=== PATIENT | male | born 1995 | race Caucasian/White ===

== ENCOUNTER 2017-06-18 12:34 | Emergency (ER) | payer BC, OTHER ==
[2017-06-18 12:40] VITALS: RESP 16
--- NOTE | 2017-06-18 13:09 | EDPHY ---
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 He was snowboarding with friends and doing tricks and stuck his head several times during falls. He remembers one particularly hard fall after which he felt dazed, but he did feel well enough to continue snowboarding. No LOC. He was helmeted. Since that time, he has had difficulty concentrating, headaches while reading, and intermittent nausea. He feels he has been speaking and processing things more slowly since the incident. Currently, he has a mild headache. He was evaluated earlier today at [facility] clinic, and presents now for further evaluation including CT head. He has had a concussion in the past. He denies neck pain, chest pain, abdominal pain, or other associated symptoms. REVIEW OF SYSTEMS: A 10 point review of systems was performed and is negative with the exception of the elements mentioned in the history of present illness. Past Medical/Surgical History: ADHD Social History: Occasional tobacco and alcohol use. Student at [employer]. Smoking Status: Never smoked Physical Exam: General Appearance: Alert, no distress Head: Atraumatic Eyes: No conjunctival erythema, PERRLA, EOMI ENT, Mouth: no oral trauma, no bony tenderness Neck: Non-tender, full range of motion without pain Respiratory: No chest wall tenderness, lungs clear bilaterally Cardiovascular: Regular rate and rhythm Abdomen: Abdomen is soft and non tender Skin: No lacerations, no abrasions Back: No midline T/L/S tenderness Extremities: Pelvis is stable and nontender; no extremity tenderness or deformity Neurological: Alert, oriented x3, cranial nerves II through XII intact, motor 5/ 5, sensory intact to light touch, normal gait Psychiatric: Mood and affect normal Constitutional: Initial Vital Signs Temperature (C) 36.4 C 06/18/17 12:35 Heart Rate 65 06/18/17 12:35 Respiratory Rate 16 06/18/17 12:35 Blood Pressure 114/66 06/18/17 12:35 O2 Sat (%) 96 06/18/17 12:35 O2 Delivery Mode Room Air Allergies/Adverse Reactions: No Known Allergies Allergy (Unverified 06/18/17 12:39) Home Medications: Medication Instructions Recorded [place]van[place] 06/18/17 Medical Decision Making - Diagnostics Imaging Results: Imaging Impressions Head CT 06/18/17 13:09 Impression: 1. Normal CT brain without contrast. 2. No skull fracture. 3. No epidural or subdural hematoma. Findings and recommendations discussed with Emergency Department physician, CLARA VARGAS at 13:49 hour, 06/18/2017. Final report concurs with initial preliminary interpretation. Imaging: Discussed imaging studies w/ kitchen manager Radiologist ED Course/Re-evaluation: 22 y/o male presents with concussion symptoms secondary to a head injury . Plan for CT head. 13:[address] Rivas, radiolgoist. CT head negative. Results d/w patient. c/w concussion. Plan to d/c home in good condition. F/u and return precautions discussed. Referral to concussion specialist given. He is comfortable with this plan. Differential Diagnosis: includes though not limited to ICH, skull fracture, spinal fracture Departure - Departure Disposition: Home, Routine, Self-Care Clinical Impression: Concussion Qualifiers: Encounter type: initial encounter Loss of consciousness presence/duration: without LOC Qualified Code(s): S06.0X0A - Concussion without loss of consciousness, initial encounter Condition: Good Instructions: Concussion (ED) Additional Instructions: 1. Follow-up with Naina this week. We have referred you to a concussion specialist, please follow up with her as well for continued management of your symptoms. 2. Brain rest - try to avoid TV, video games, cell phones, or reading while symptoms persist. You may reintroduce activities as tolerated. 3. Physical rest - avoid activities that could result in further head injury or that require prolonged attention until your symptoms completely resolve. 4. You may take Tylenol or Ibuprofen as directed below as needed for pain. 5. Return to the Emergency Department for severe headache, vomiting, vision changes, confusion, fever or other concerns. Adult Pain & Fever Control: We recommend Acetaminophen (Tylenol) and Ibuprofen (Motrin,Advil) for pain and fever control. When fever is high or pain severe, both drugs can be used at the same time, but at different intervals. Please note the time differences. Your dose is: Acetaminophen 650mg every 4 to 6 hours Ibuprofen 600mg every 6-8 hours with food Note: do not take Acetaminophen with Hydrocodone (Vicodin, Lortab) or Oxycodone (Percocet). These medications also contain Acetaminophen. No more than 3000mg of Acetaminophen should be taken in 24 hours (for an adult). Referrals: [facility],. [Clinic] - As per Instructions Maranda Jones MD [Medical Doctor] - As per Instructions Report Scribed for: Clara Vargas Report Scribed by: Mckenzie Brown Date of Report: 06/18/17 Time of Report: 13:27 Physician Review and Approval Statement: 06/18/17 13:29 Portions of this note were transcribed by a medical policy specialist. I personally performed a history, physical exam, medical decision making, and confirmed accuracy of information the transcribed note.
[2017-06-18 14:16] VITALS: BP 120/76; PULSE 69; TEMP 97.7; O2SAT 94
== END 2017-06-18 14:14 | disposition home or self-care (01) ==
DX: S06.0X0A Concussion without loss of consciousness, initial encounter (principal); W18.09XA Striking against other object with subsequent fall, initial encounter